=== PATIENT | female | born 2000 | race African-American/Black ===

== ENCOUNTER 2020-06-21 21:13 | Emergency (ER) | payer SELFPAY ==
[~2020-06-21] VITALS: Ht 162.6 cm; Wt 79.5 kg
[2020-06-21 21:37] VITALS: TEMP 98.5
[2020-06-21 23:35] LABS: TRICYCLIC ANTIDEPRESS URINE NEGATIVE
[2020-06-21 23:57] VITALS: BP 128/60; PULSE 81
== END 2020-06-21 23:58 | disposition home or self-care (01) ==
LOC: COL.ER 21:13
PROVIDERS: Emergency Medicine
DX: T74.21XA Adult sexual abuse, confirmed, initial encounter (principal); Z32.02 Encounter for pregnancy test, result negative; X58.XXXA Exposure to other specified factors, initial encounter; Y92.009 Unspecified place in unspecified non-institutional (private) residence as the place of occurrence of the external cause; Y07.9 Unspecified perpetrator of maltreatment and neglect